=== PATIENT | female | born 1955 | race Caucasian/White ===

== ENCOUNTER → 2019-02-02 | Outpatient (CLI) | payer BC ==
--- NOTE | 2019-02-02 10:58 | US ---
EXAMINATION TYPE: US abdomen complete DATE OF EXAM: 02/02/2019 COMPARISON: NONE CLINICAL HISTORY: Swollen Abd R14.0. right sided distention, patient diagnosed with shingles on the r ight side of abd 3 weeks ago, no other symptoms EXAM MEASUREMENTS: Liver Length: 16.8 cm Gallbladder Wall: 0.2 cm CBD: 0.6 cm Spleen: 9.0 cm Right Kidney: 9.1 x 4.4 x 4.2 cm Left Kidney: 9.7 x 4.9 x 5.5 cm Pancreas: wnl Liver: multiple heterogeneous lesions seen within right and left lobe Gallbladder: wnl Evidence for sonographic Mendenhall's sign: no CBD: wnl Spleen: wnl Right Kidney: wnl Left Kidney: 1.6cm simple appearing inferior cyst Upper IVC: wnl Abd Aorta: wnl The liver is heterogenous with multiple hypoechoic lesions noted throughout the liver. Suspect metast atic disease. The intrahepatic portion of the IVC and proximal abdominal aorta are within normal limi ts. There is no evidence of cholelithiasis. Common bile duct is unremarkable. The visualized porti ons of the pancreas are homogenous. The spleen is unremarkable. Kidneys are symmetric and free of h ydronephrosis. No solid renal lesions are seen. IMPRESSION: 1. Suspect metastatic disease to the liver. CT correlation advised.
--- NOTE | 2019-02-02 10:58 | US ---
EXAMINATION TYPE: US pelvic complete DATE OF EXAM: 02/02/2019 COMPARISON: NONE CLINICAL HISTORY: Swollen Abd R14.0. diagnosed with shingles on the right side of abd 3 weeks ago, ri ght sided abd swelling, TECHNIQUE: TA. Transabdominal sonographic images of the pelvis were acquired. Date of LMP: 20yrs ago EXAM MEASUREMENTS: Uterus: 6.1 x 3.2 x 2.4 cm Endometrial Stripe: 0.4 cm Right Ovary: not seen Left Ovary: 2.1 x 1.9 x 1.6 cm 1. Uterus: Anteverted wnl 2. Endometrium: wnl 3. Right Ovary: not seen due to atrophy and bowel gas 4. Left Ovary: wnl 5. Bilateral Adnexa: wnl 6. Posterior cul-de-sac: wnl IMPRESSION: No distinct abnormality identified.
[2019-02-02 12:01] LABS: Basophils # (A) 0.1 k/uL (0-0.2); Basophils % (A) 1 %; Eosinophils # (A) 0.1 k/uL (0-0.7); Eosinophils % (A) 2 %; HCT 43.3 % (34.0-46.0); HGB 13.8 gm/dL (11.4-16.0); Lymphocytes # (A) 1.7 k/uL (1.0-4.8); Lymphocytes % (A) 25 %; MCH 27.7 pg (25.0-35.0); MCHC 31.8 g/dL (31.0-37.0); MCV 87.3 fL (80.0-100.0); Mean Platelet Volume 6.1; Monocytes # (A) 0.3 k/uL (0-1.0); Monocytes % (A) 4 %; Neutrophils # (A) 4.8 k/uL (1.3-7.7); Neutrophils % (A) 68 %; Platelet Count 377 k/uL (150-450); RBC 4.97 m/uL (3.80-5.40); RDW 13.9 % (11.5-15.5)
[2019-02-02 12:11] LABS: ALT 45 U/L (9-52); AST 28 U/L (14-36); Alkaline Phosphatase 86 U/L (38-126); Amylase 70 U/L (30-110); Anion Gap 12 mmol/L; Blood Urea Nitrogen 18 mg/dL (7-17); Calcium 10.3 mg/dL (8.4-10.2); Carbon Dioxide 26 mmol/L (22-30); Chloride 104 mmol/L (98-107); Glucose 101 mg/dL (74-99); Lipase 61 U/L (23-300); Potassium 4.4 mmol/L (3.5-5.1); Sodium 142 mmol/L (137-145); Total Bilirubin 0.6 mg/dL (0.2-1.3); Total Protein 8.4 g/dL (6.3-8.2)
--- NOTE | 2019-02-02 12:28 | CT ---
EXAMINATION TYPE: CT abdomen w con DATE OF EXAM: 02/02/2019 COMPARISON: Ultrasound 02/02/2019 HISTORY: Swollen abdomen, Liver disease CT DLP: 972 mGycm CONTRAST: CT scan of the abdomen is performed with Oral Contrast and with IV Contrast, patient injected with 1 00 ml mL of Isovue 300. FINDINGS: LUNG BASES-: No visible nodule. No infiltrate. LIVER/GB: There is underlying hepatic steatosis. Noted are lesions with subtle peripheral increased a ttenuation and central decreased attenuation which partially fill in following a 2 minute delay. Ther e is a 5.3 x 4.1 cm lesion within the periphery of the lateral segment left hepatic lobe with additio nal adjacent smaller lesions measuring up to 1.5 cm. There is also a somewhat elongated lesion within the periphery of the dome of the liver measuring 3.0 x 1.2 cm. There is a hypoattenuating lesion ant erior segment right hepatic lobe subcentimeter in size as well as a hypoattenuating lesion at the dom e of the liver adjacent to the intrahepatic portion of the inferior vena cava. The lesions are nonspe cific and could reflect hemangiomas. Metastatic disease is not excluded. MRI of the liver is recommen ded with delayed images obtained. PANCREAS: No inflammation. No distinct mass. SPLEEN: No splenic enlargement. No lesion seen. ADRENALS: No nodule. No thickening. KIDNEYS/BLADDER: No hydronephrosis. No nephrolithiasis. No distinct solid renal mass. Renal cystic changes noted. Urinary bladder grossly unremarkable. BOWEL: Normal appendix. Normal bowel caliber. No inflammation. GENITAL ORGANS: No gross abnormality. LYMPH NODES: No greater than 1cm abdominal or pelvic lymph nodes are appreciated. AORTA: No significant abnormality. OSSEOUS STRUCTURES: No significant abnormality is seen. OTHER: No significant additional abnormality is seen. IMPRESSION: 1. Multiple hepatic lesions are nonspecific and could reflect hemangiomas although several of the les ions do not fill in entirely. Hemangioma protocol was not utilized however. I do recommend MRI of the liver to confirm the possibility of underlying hemangiomas and exclude other etiologies such as meta static lesions.
== END ==
LOC: RADUSWWP 10:02
PROVIDERS: ATTEND Internal Medicine
DX: R14.0 Abdominal distension (gaseous) (principal); K76.9 Liver disease, unspecified
CPT/HCPCS: 80053; 82150; 83690; 85025; 76700; 76856; 74160; 36415; Q9967

== ENCOUNTER → 2019-02-09 | Outpatient (CLI) | payer BC ==
--- NOTE | 2019-02-10 06:35 | MR ---
EXAMINATION TYPE: MR liver wo/w con DATE OF EXAM: 02/09/2019 COMPARISON: CT scan 02/02/2019 and ultrasound 02/02/2019 HISTORY: Hemangioma vs metastatic lesions, abn CT/US CONTRAST: Standard multiplanar, multisequence MRI departmental protocol utilizing 7.5 mL intravenous Gadavist g adolinium contrast. FINDINGS: There is a 5 cm somewhat rounded area of low signal on the T1 images in the anterior left l obe of the liver. There is a similar subcapsular 4.5 x 1.7 cm area of similar signal in the lateral r ight lobe of the liver. The bile ducts are not dilated. Spleen appears normal. There is no evidence o f a pancreatic mass. Kidneys have normal size and contour. There is no hydronephrosis. There is 1 cm cortical cyst medial left kidney. There is no adrenal mass. There is no sign of retroperitoneal adenopathy. Stomach appear s normal. The contrast images show that there is progressive centripetal enhancement of the lesions in the live r. The last delayed images show almost complete infilling of both lesions with contrast. There is no ascites. There is no pleural effusion. Heart appears normal. Visualized thoracic and lumb ar spine are intact. There is no evidence of intestinal mass. IMPRESSION: Exam shows 2 liver lesions which have enhancement pattern diagnostic of hemangioma.
== END | disposition home or self-care (01) ==
LOC: RADMRIMAIN 20:42
PROVIDERS: ATTEND Physician Assistant
DX: K76.9 Liver disease, unspecified (principal)
CPT/HCPCS: 74183; A9585